=== PATIENT | female | born 2005 | race Caucasian/White ===

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

== ENCOUNTER 2024-07-24 04:46 | Emergency (ER) | payer MEDICAID, SELFPAY ==
[2024-07-24 04:49] VITALS: BP 126/95; PULSE 104; RESP 20; TEMP 36.8; O2SAT 100; BMI 18.6
[2024-07-24 05:07] LABS: IDNOW Serial# 08D9AD1C; Strep A Nucleic Acid Negative (Negative)
[2024-07-24 05:36] LABS: Influenza A PCR NEGATIVE (Negative); Influenza B PCR NEGATIVE (Negative); Resp Syncy Virus RNA Qual PCR NEGATIVE (Negative); SARS COV2 PCR INHOUSE POSITIVE (Negative)
--- OUTSIDE RECORDS SUMMARY | 2024-07-24 05:50 | XMS_ITS | Continuity of Care Document ---
Author Organization [facility] ter Address [address] [place] [id number]- Care Team Providers Care Drying Room Attendant Name Role Phone Karolyn Marte MD Primary Care Physician [phone] Encounter [facility] Date(s): 11/05/19 - 11/05/[address] [id number] Encounter Diagnosis Headache(Final) - 11/05/19 Discharge Disposition: A-D/C Home Attending Physician: Graham Nguyen MD Admitting Physician: Graham Nguyen MD Referring Physician: Not on Staff, Referring MD Allergies, Adverse Reactions, Alerts Substance Reaction Severity Status Neutrogena On Spot Acne Treatment 1 Active Nuts Active Other Environmental Allergy 2 Active 1Mom not sure of the name of an acne medicine, but she did have an allergic reaction 2seasonal Immunizations Given and Recorded Vaccine Date Status Refusal Reason Hepatitis A Pediatric Vaccine 1 07/28/10 Given Influenza Live (intranasal) (oldterm) 2 09/21/08 G iven Poliovirus Vaccine, Inactivated 08/06/07 Given Poliovirus Vaccine, Inactivated 03/22/04 Given Poliovirus Vaccine, Inactivated 03 Given Poliovirus Vaccine, Inactivated 03 Given diphtheria/tetanus/pertussis, acel(DTaP) 08/06/07 Given diphtheria/tetanus/pertussis, acel(DTaP) 11/29/04 Given diphtheria/tetanus/pertussis, acel(DTaP) 03 Given diphtheria/tetanus/pertussis, acel(DTaP) 03 Given diphtheria/tetanus/pertussis, acel(DTaP) 03 Given Varicella Virus Vaccine 08/06/07 Given Varicella Virus Vaccine 06/29/04 Given Measles/Mumps/Rubella Virus Vaccine 08/06/07 Given Measles/Mumps/Rubella Virus Vaccine 3 08/06/07 Giv en Measles/Mumps/Rubella Virus Vaccine 03/22/04 Given Haemophilus B Conj Vaccine (oldterm) 11/29/04 Give n Haemophilus B Conj Vaccine (oldterm) 03 Give n Haemophilus B Conj Vaccine (oldterm) 03 Give n Haemophilus B Conj Vaccine (oldterm) 03 Give n Hepatitis B Vaccine (old term) 01/19/04 Given Hepatitis B Vaccine (old term) 03 Given Hepatitis B Vaccine (old term) 03 Given Pneumococcal Conjugate (PCV7) (oldterm) 03 G iven Pneumococcal Conjugate (PCV7) (oldterm) 03 G iven Pneumococcal Conjugate (PCV7) (oldterm) 03 G iven Pneumococcal Conjugate (PCV7) (oldterm) 03 G iven 1Admin Note: vis given 02/06/06 2Admin Note: FluMist VIS (06/11/08) given 3Result Comment: duplicate Medications Adderall 5 mg oral tablet See Instructions, 1 tablet By Mouth in the afternoon, approx 3pm during the school year per mom, 0 Refills, Maintenance, 05/29/19 12:44:31 EDT Start Date: 05/29/19 Status: Ordered Adderall XR 15 mg oral capsule, extended release 1 capsule = 15 mg, By Mouth, Daily in AM, 0 Refills, Maintenance, 05/29/19 12:38:47 EDT, CR Capsule Start Date: 05/29/19 Status: Ordered Benadryl 25 mg oral capsule 1 capsule = 25 mg, By Mouth, Daily at bedtime, PRN as needed for insomnia, 0 Refills, Maintenance, 05/29/19 12:42:58 EDT Start Date: 05/29/19 Status: Ordered FLUoxetine 20 mg oral capsule 20 mg, 1, capsule, By Mouth, Daily, # 30 capsule, Refills 0, Tot. Refills 0, Maintenance, 06/03/19 15:25:53 EDT, Route to Pharmacy Electronically, [id number], [facility] Start Date: 06/03/19 Status: Ordered Melatonin 10 mg oral capsule 1 capsule = 10 mg, By Mouth, Daily at bedtime, PRN as needed for insomnia, 0 Refills, Maintenance, 05/29/19 12:43:49 EDT Start Date: 05/29/19 Status: Ordered RisperDAL 0.25 mg oral tablet 0.25 mg, 1, tablet, By Mouth, 2 times a day, # 60 tablet, Refills 0, Tot. Refills 0, Maintenance, 06/03/19 15:26:21 EDT, Route to Pharmacy Electronically, [id number], [facility] Start Date: 06/03/19 Status: Ordered Vital Signs Most recent to oldest [Reference Range]: 1 2 3 Height 170 cm (11/05/19 5:26 PM) 170 cm (11/05/19 3:24 PM) 170 cm (11/05/19 11:13 AM) Weight 60.3 kg (11/05/19 5:26 PM) 60.3 kg (11/05/19 3:24 PM) 60.3 kg (11/05/19 11:13 AM) Oxygen Saturation [94-100 %] 100 % (11/05/19 5:26 PM) 100 % (11/05/19 3:24 PM) Pulse Rate [55-90 bpm] 85 bpm (11/05/19 5:26 PM) 84 bpm (11/05/19 3:24 PM) 103 bpm *H* (11/05/19 10:59 AM) Body Mass Index [18.5-24.99] 20.87 (11/05/19 5:26 PM) 20.87 (11/05/19 3:24 PM) 20.87 (11/05/19 10:59 AM) Blood Pressure [80-130/50-80 mm Hg] 116/73mm Hg (11/05/19 5:26 PM) 119/75mm Hg (11/05/19 3:24 PM) 120/79mm Hg (11/05/19 10:59 AM) Respiratory Rate [16-30 br/min] 18 br/min (11/05/19 5:26 PM) 16 br/min (11/05/19 3:24 PM) 16 br/min (11/05/19 10:59 AM) Temperature [96.8-100.4 DegF] 98.7 DegF (11/05/19 5:26 PM) 98.8 DegF (11/05/19 3:24 PM) 97.7 DegF (11/05/19 10:59 AM) Mode of Delivery (Oxygen) Room air (11/05/19 5:26 PM) Room air (11/05/19 3:24 PM) Room air (11/05/19 10:59 AM) Blood pressure sites Arm, left (11/05/19 5:26 PM) Arm, left (11/05/19 3:24 PM) Arm, left (11/05/19 10:59 AM) Temperature Route Oral (11/05/19 5:26 PM) Oral (11/05/19 3:24 PM) Oral (11/05/19 10:59 AM) Dry Weight 60.3 kg (11/05/19 5:26 PM) 60.3 kg (11/05/19 3:24 PM) 60.3 kg (11/05/19 11:13 AM) Weight Obtained Via Standing scale (11/05/19 10:59 AM) Dry Weight Obtained Via Standing scale (11/05/19 10:59 AM)
--- NOTE | 2024-07-24 06:18 | ED_ITS ---
HPI - URI/Sore Throat General Chief Complaint: Upper Respiratory Symptoms Stated Complaint: Sore throat Time Seen by Provider: 07/24/24 06:02 Source: patient and family (Mother) Mode of arrival: ambulatory Limitations: no limitations History of Present Illness ED Provider: DR. Carl HPI Narrative: 19-year-old female walked to the emergency department with her mother for evaluation of sore throat, no sick contacts, no fever, no chills, no recent travel. Patient also reported coughing and congestion. Related Data Home Medications ?Medication ?Instructions ?Recorded ?Confirmed buspirone 10 mg tablet 20 mg PO TID 11/16/21 01/06/22 dextroamphetamine-amphetamine ER 15 mg PO QAM 11/16/21 01/06/22 15 mg 24hr capsule,extend release (Adderall XR) fluvoxamine 100 mg tablet 150 mg PO BEDTIME 11/16/21 01/06/22 loratadine 10 mg tablet 1 tab PO DAILY 11/16/21 01/06/22 perphenazine 16 mg tablet 16 mg PO BEDTIME 11/16/21 01/06/22 perphenazine 4 mg tablet 4 mg PO BID 11/16/21 01/06/22 Allergies Allergy/AdvReac Type Severity Reaction Status Date / Time nut - unspecified [NUTS] Allergy Unknown RASH Verified 07/24/24 04:50 Review of Systems Review of Systems: All other systems are reviewed and are negative Constitutional: Reports as per HPI and Reports no additional constitutional complaints Eyes: Reports as per HPI and Reports no additional eye complaints Reports system reviewed and no additional complaints, except as documented Cardiovascular: Reports as per HPI and Reports no additional cardiovascular complaints Respiratory: Reports as per HPI and Reports no additional respiratory complaints Gastrointestinal: Reports as per HPI and Reports no additional gastrointestinal complaints Genitourinary: Reports no additional female genitourinary complaints Musculoskeletal: Reports no additional musculoskeletal complaints Skin/Breast: Reports system reviewed and no additional complaints, except as docu Psychiatric: Reports no additional psychiatric complaints Endocrine: Reports no additional endocrine complaints Hematologic/Lymphatic: Reports no additional hematologic/lymphatic complaints Allergic/Immunologic: Reports no additional allergic/immunologic complaints Reports system reviewed and no additional complaints, except as documented and Reports Abnormal speech present PMFSH Past Medical History Medical History No known health problems Social History Social History Household Members: Family Household Members Other:: N/A Patient Tobacco Use Status: Never used Tobacco Smoked in Last 30 Days: No Use of substances other than those prescribed or required for medical reasons: No Advance Directives: No Advance Directives Information Provided: Yes Do you have a plan to hurt others: No Plan Physical Exam Vital Signs: Vital Signs: Last Vital Signs Temp 98.2 F 07/24/24 04:49 Pulse 104 H 07/24/24 04:49 Resp 20 07/24/24 04:49 BP 126/95 H 07/24/24 04:49 Pulse Ox 100 07/24/24 04:49 O2 Del Method Room Air 07/24/24 04:49 BMI result Body Mass Index 18.6 Vital signs have been reviewed and appear to be correct. Blood pressure elevated. Heart rate normal. Respiratory rate normal. Temperature normal. Oxygen saturation normal. Appearance: Alert. Oriented X3. No acute distress. Head: Normal external exam. Normocephalic. Atraumatic. No Chavez signs noted. No raccoon eyes noted Eyes: PERRLA. EOMI. Conjunctiva and sclera normal. Eyelids normal. ENT: TM's Normal. Pharynx normal. Uvula midline. Moist mucous membranes. No trismus noted. No drooling noted. No muffled voice noted. Neck: Normal inspection. Neck supple. FROM. No adenopathy. Thyroid Normal. No meningeal signs. No neck mass noted. CVS: Normal heart rate and rhythm. Heart sound normal. No murmurs noted. Pulses normal throughout. Respiratory: No respiratory distress. Painless inspiration. Breath sounds normal. No wheezes/rales/rhonchi noted. Chest nontender. No accessory muscle usage noted or decreased air movement noted. Abdomen: Soft and nontender. Bowel sounds normal in all 4 quadrants. No distention noted. No organomegaly noted. No visible injury noted. Back: No CVA tenderness. Full range of motion noted. Skin: Skin warm and dry. Normal skin color. Normal skin turgor. No rashes/lesions/lacerations noted. Extremities: No lower extremity edema. Extremities exhibit normal range of motion. Extremities nontender. Neuro: Oriented X 3. Cranial nerve exam: II-XII are grossly intact No motor deficit. No sensory deficit. Reflexes normal. Course Reevaluation(s) Reevaluation #1: Upper respiratory symptoms, patient tested positive for COVID, stable vital signs, O2 sat 100% respiratory rate is 20. Patient was instructed to self quarantine, frequent hand wash, keep social distancing, wear face mask at all times Time: 06:20 Medical Decision Making Differential Diagnosis Differential Diagnoses: The differential diagnosis associated with the presentation includes (Strep pharyngitis, viral pharyngitis, pneumonia.) Admission/Observation Consideration of admission/observation: Escalation of care including admission/observation considered Lab Data MDM Lab Attestation statement: I reviewed the patient's lab results. Labs: Lab Results 07/24/24 Range/Units 04:54 Influenza Type A (PCR) NEGATIVE (Negative) Influenza Type B (PCR) NEGATIVE (Negative) RSV RNA Qual (PCR) NEGATIVE (Negative) SARS-CoV-2 RNA (RT-PCR) POSITIVE A (Negative) S. pyogenes GrpA PRISCILLA Negative (Negative) Discharge Plan Discharge Clinical Impression: COVID-19 virus infection Patient Disposition: Home, Self-Care Instructions: COVID-19 (Coronavirus Disease 2019) (ED) Additional Instructions: Self quarantine, frequent hand washing, keep social distancing, where face mask at all times, take [id number] Tylenol if needed for fever, seek immediate medical attention if shortness of breath or difficulty breathing. Prescriptions: No Action dextroamphetamine-amphetamine [Adderall XR] 15 mg capsule,extended release 24hr 15 mg PO QAM buspirone 10 mg tablet 20 mg PO TID Rx Instructions: Take three 10 mg tabs 3x day fluvoxamine 100 mg tablet 150 mg PO BEDTIME loratadine 10 mg tablet 1 tab PO DAILY perphenazine 16 mg tablet 16 mg PO BEDTIME perphenazine 4 mg tablet 4 mg PO BID Rx Instructions: Daily in am and one tab at night as directed Print Language: [place]
[2024-07-24 06:32] VITALS: BP 126/95; PULSE 104; RESP 20; TEMP 36.8; O2SAT 100
== END 2024-07-24 06:35 | disposition home or self-care (01) ==
PROVIDERS: Emergency Provider Emergency Medicine
DX: U07.1 COVID-19 (principal); J02.9 Acute pharyngitis, unspecified
CPT/HCPCS: 0241U; 87651; 99283; 99284